=== PATIENT | female | born 1960 | race Caucasian/White ===

== ENCOUNTER 2024-04-07 17:15 | Emergency (ER) | payer OTHER, MEDICARE, SELFPAY ==
[2024-04-07 17:16] VITALS: BP 148/84; PULSE 84; RESP 14; TEMP 36.8; O2SAT 98; BMI 29.8
--- NOTE | 2024-04-07 17:28 | ED.RN ---
PT STATES THAT SHE DOES NOT KNOW ALL HER ALLERGIES, I HAVE A LOT OF THEM. PT DID NOT HAVE A COMPLETE LIST WITH HER, CANT YOU GET ON [facility] MYCHART.
--- NOTE | 2024-04-07 18:00 | US_ITS ---
We are attempting to reach an attending provider to discuss findings. An addendum with communication details will be sent when the communication is complete. INDICATION: lt leg pain/redness EXAMINATION: Ultrasound US Venous Duplex LE Unilat / Limited TECHNIQUE: Baptiste scale, pulse wave, and color flow Doppler imaging was performed of the lower extremity venous system. The LEFT greater saphenous, common femoral, femoral, and popliteal veins were interrogated. COMPARISON: No pertinent previous for comparison.. FINDINGS: There is documentation of compression flow signal within the common femoral vein and the superficial femoral vein proximal and mid segments. There is incomplete compression of the distal SFV without intraluminal Doppler signal. Popliteal vein is normal in appearance. Posterior tibial and peroneal veins are poorly visualized however appear to be noncompressible. There is significant surrounding edema. US/Venous Duplex Imag/Limited/Uni IMPRESSION: 1. Noncompressible distal SFA with diminished Doppler signal consistent with short segment of DVT extending through the level of the adductor canal. Normal appearance of the popliteal artery. 2. Peroneal and posterior tibial veins are poorly visualized, however segments appear to be noncompressible and calf DVT is a consideration. 3. Moderate edema within the calf is noted in the area of swelling. Electronically Signed: Thai Kimbrough MD at 21:40 EDT ,
--- NOTE | 2024-04-07 18:12 | EX.ED.DYSGE1 ---
HPI History of Present Illness Chief Complaint: Lower Extremity Injury Narrative Narrative: Patient is a 63-year-old female past medical history of CKD stage III, spina bifida, RA, Raynaud's syndrome, neuropathy who presents in the emergency department with chief complaint of left lower extremity swelling redness and pain. She states that she recently took a trip on vacation approximately 4 hours she states that they stop several times and she ambulated during the trip. Patient denies any history of blood clots. [facility] Medical History DVT (deep venous thrombosis) CKD (chronic kidney disease) stage 3, GFR 30-59 ml/min Spina bifida Rheumatoid arthritis Neuropathy Mcallister syndrome Home Medications ?Medication ?Instructions ?Recorded ?Last Taken ?Type ciprofloxacin HCl 500 mg tablet 500 mg PO Q12H 5 days #10 tabs 04/07/24 Unknown Rx rivaroxaban 15 mg (42)-20 mg (9) See Rx Instructions PO .COMPLEX 04/07/24 Unknown Rx tablets in a starter pack (Xarelto #51 tabs DVT-PE Treatment 30-Day Starter) Allergy/AdvReac Type Severity Reaction Status Date / Time clindamycin Allergy UNKNOWN Verified 04/07/24 17:26 doxycycline Allergy UNKNOWN Verified 04/07/24 17:26 prochlorperazine (From Allergy Anaphylaxis Verified 04/07/24 17:26 Compazine) Sulfa (Sulfonamide Allergy BLISTERS Verified 04/07/24 17:26 Antibiotics) tetracycline Allergy Anaphylaxis Verified 04/07/24 17:26 vancomycin Allergy UNKNOWN Verified 04/07/24 17:26 Social History Smoking Status: Never smoker ROS ROS ED ROS Narrative Constitutional: Denies any fevers, chills, headaches, lightheadedness, dizziness Eyes: Denies any change in vision double vision blurry vision Cardiovascular: Denies chest pain or palpitations Respiratory: Denies coughing wheezing shortness of breath Abdomen: Denies abdominal pain nausea vomiting diarrhea : Denies any urinary symptoms Neurological: Denies any new numbness, weakness, tingling Musculoskeletal: Complains of left lower extremity swelling and pain as noted above Skin: Complains of redness in the left leg as noted above EXAM Physical Exam Narrative Exam Narrative: General: Patient lying in bed resting comfortably did not appear to be any acute distress Head: Atraumatic, normocephalic Eyes: PERRL bilaterally, EOMI bilaterally, no conjunctival injection noted Neck: Soft and supple, trachea midline Cardiovascular: Regular rate and rhythm no murmurs gallops rubs noted Respiratory: Clear to auscultation bilaterally Abdomen: Soft, nondistended, no tenderness palpation Extremities: DP pulses +2/4 in the bilateral lower extremities, patient's left lower extremity does appear to be swollen more than her right, no pedal edema on exam, +5/5 strength noted in the bilateral upper and lower extremities Neurological: Patient following commands knew that she was at [facility] year is 2023 Skin: Patient does have some surrounding erythema noted to the anterior sy that is warm to the touch. No petechia no purpura no sloughing of skin noted no other rashes or lesions noted Const Vital Signs: 04/07/24 17:16 04/07/24 19:51 04/07/24 21:00 Temperature 98.3 F Temperature Source Temporal Pulse Rate 84 85 81 Respiratory Rate 14 16 16 Blood Pressure 148/84 H Blood Pressure Mean 105 Pulse Ox 98 97 98 Oxygen Delivery Method Room Air Room Air Room Air MDM MDM MDM Narrative Medical decision making narrative: Patient is a 63-year-old female who presented to the emerged part with chief complaint of left leg swelling and pain. Patient will have a workup performed here on the differential diagnose includes but not limited to DVT, cellulitis. Once workup is obtained reviewed she will be reevaluated. Patient is requesting something for pain she states that she just took Tylenol prior to arrival and notes that she cannot take NSAIDs. Patient's duplex was reviewed and she has a noncompressible distal SFA with diminished Doppler signal consistent with short segment of DVT extending through the level of the adductor canal normal appearance of the popliteal artery. Peroneal and posterior tibial veins are poorly visualized however segments appear to be noncompressible and calf DVT is a consideration. Moderate edema within the calf is noted in the area of swelling. Patient will be given her first dose of Xarelto she was given a Xarelto brochure. Pamphlet card to take to the pharmacy. She will be given a prescription for Xarelto. She was encouraged to take the Xarelto as prescribed. She will be given a prescription for cellulitis she states that she has multiple allergies and cannot take many medications. I offered to give her first dose of Keflex here and observe her, however she refused this and states that she had a reaction to Keflex several years ago. She is requesting ciprofloxacin for her cellulitis. She was encouraged to follow-up with her primary care physician outpatient setting. She was encouraged to come to the nearest emergency department if she falls and hits her head. Since she has had a few falls recently I did encourage her to use a cane or walker at home to make sure that she does not fall to provide stability for her. Patient was encouraged to return with worsening symptoms or other concerns. Patient would like to go home all question concerns answered she is discharged home in stable condition. Radiography Diagnostic Testing: Clinical Impression(s) from Imaging Studies Venous Duplex 04/07/24 18:00 IMPRESSION: 1. Noncompressible distal SFA with diminished Doppler signal consistent with short segment of DVT extending through the level of the adductor canal. Normal appearance of the popliteal artery. 2. Peroneal and posterior tibial veins are poorly visualized, however segments appear to be noncompressible and calf DVT is a consideration. 3. Moderate edema within the calf is noted in the area of swelling. Electronically Signed: Thai Kimbrough MD at 21:40 EDT , ADDENDUM: 04/07/242155 IMPRESSION: 1. Noncompressible distal SFA with diminished Doppler signal consistent with short segment of DVT extending through the level of the adductor canal. Normal appearance of the popliteal artery. 2. Peroneal and posterior tibial veins are poorly visualized, however segments appear to be noncompressible and calf DVT is a consideration. 3. Moderate edema within the calf is noted in the area of swelling. N.B. : The above Results were Read Back by Thai Kimbrough MD to [place] Pena DO, and understanding confirmed on 04/07/2024 21:49:08 (ET). Electronically Signed: Thai Kimbrough MD at 21:40 EDT , Discharge Plan Triage Chief Complaint: Lower Extremity Injury ED Provider: Berlin Pena Dx/Rx/DC Orders Clinical Impression: Acute deep vein thrombosis (DVT) of left lower extremity Instructions: DVT Complications Prescriptions: New Xarelto DVT-PE Treat 30d Start 15 mg (42)- 20 mg (9) tablets,dose pack See Rx Instructions .ROUTE .COMPLEX Qty: 51 0RF Rx Instructions: take one-15 mg tablet twice daily for 21 days, then one-20 mg tablet once daily; must take with meal/food ciprofloxacin HCl 500 mg tablet 500 mg PO Q12H 5 Days Qty: 10 0RF Primary Care Provider: JM SIMMONS Referrals: JM SIMMONS [Other] Activity Restrictions/Additional Instructions: Take Xarelto as prescribed. Take antibiotic as prescribed. If you fall and hit your head you need to go to the emergency department for evaluation being on a blood thinning medication. Return with worsening symptoms or other concerns. Print Language: Ukrainian Disposition Disposition: Home, Self Care
[2024-04-07] MEDS: Ondansetron ODT 4 MG Tablet PO (18:21)
[2024-04-07] MEDS: oxyCODONE 5 MG Tablet PO ×2 (18:21→22:42)
[2024-04-07 19:51] VITALS: PULSE 85; RESP 16; O2SAT 97
[2024-04-07 21:00] VITALS: PULSE 81; RESP 16; O2SAT 98
[2024-04-07] MEDS: Rivaroxaban 15 MG Tablet PO (22:22)
--- NOTE | 2024-04-07 22:41 | ED.RN ---
Pt refusing keflex due to previous allergy with unknown reactions. Pt states I don't feel comfortable taking the Keflex since I have had a reaction before. aware and changed the abx.
[2024-04-07] MEDS: Ciprofloxacin 500 MG Tablet PO (22:43)
[2024-04-07 23:00] VITALS: PULSE 72; RESP 16; TEMP 36.7; O2SAT 98
== END 2024-04-07 23:05 | disposition home or self-care (01) ==
PROVIDERS: Emergency Provider Emergency Medicine; Visit Provider Emergency Medicine
DX: I82.402 Acute embolism and thrombosis of unspecified deep veins of left lower extremity (principal); M06.9 Rheumatoid arthritis, unspecified; Q05.9 Spina bifida, unspecified; N18.30 Chronic kidney disease, stage 3 unspecified; M79.89 Other specified soft tissue disorders
CPT/HCPCS: 93971; 99283

== ENCOUNTER 2024-07-11 15:48 | Emergency (ER) | payer OTHER, MEDICARE, SELFPAY ==
[2024-07-11 15:48] VITALS: BP 128/72; PULSE 81; RESP 16; TEMP 36.8; O2SAT 99; BMI 28.6
--- NOTE | 2024-07-11 16:36 | EX.ED.DYSGE1 ---
HPI History of Present Illness Chief Complaint: Lower Extremity Injury [facility] Medical History DVT (deep venous thrombosis) CKD (chronic kidney disease) stage 3, GFR 30-59 ml/min Spina bifida Rheumatoid arthritis Neuropathy Mcallister syndrome Home Medications ?Medication ?Instructions ?Recorded ?Last Taken ?Type ciprofloxacin HCl 500 mg tablet 500 mg PO Q12H 5 days #10 tabs 04/07/24 Unknown Rx rivaroxaban 15 mg (42)-20 mg (9) See Rx Instructions PO .COMPLEX 04/07/24 Unknown Rx tablets in a starter pack (Xarelto #51 tabs DVT-PE Treatment 30-Day Starter) cefdinir 300 mg capsule 600 mg (2 x 300 mg) PO DAILY 10 07/11/24 Unknown Rx days #20 caps Allergy/AdvReac Type Severity Reaction Status Date / Time cephalexin (From Keflex) Allergy PT UNSURE Verified 07/11/24 15:52 OF REACTION clindamycin Allergy UNKNOWN Verified 07/11/24 15:52 doxycycline Allergy UNKNOWN Verified 07/11/24 15:52 prochlorperazine (From Allergy Anaphylaxis Verified 07/11/24 15:52 Compazine) Sulfa (Sulfonamide Allergy BLISTERS Verified 07/11/24 15:52 Antibiotics) tetracycline Allergy Anaphylaxis Verified 07/11/24 15:52 vancomycin Allergy UNKNOWN Verified 07/11/24 15:52 Social History Smoking Status: Former smoker EXAM Physical Exam Const Vital Signs: 07/11/24 15:48 07/11/24 19:00 Temperature 98.2 F Temperature Source Oral Pulse Rate 81 76 Respiratory Rate 16 18 Blood Pressure 128/72 H 129/71 H Blood Pressure Mean 90 90 Pulse Ox 99 96 Oxygen Delivery Method Room Air Room Air [facility] MDM Narrative Medical decision making narrative: HISTORY OF PRESENT ILLNESS: 64 female history of CKD, spina bifida, RA, Raynaud's syndrome, here with left calf pain, redness tingling and swelling. Pain is worse with ambulation. No known injuries. No chest pain, shortness of breath or syncope REVIEW OF SYSTEMS: Pertinent positives: Leg pain Pertinent negatives: Chest pain, shortness of breath or syncope PHYSICAL EXAM: Nursing triage notes reviewed, Vital signs reviewed Constitutional: please see mdm Extremities: Slight edema noted to left lower extremity, compartments are soft Neuro: Intact sensation L1-S1 dermatomal distributions. Intact 5/5 strength in hip flexion (T12-L3). Knee extension (L2-L4). Ankle dorsiflexion (L4-L5). Ankle plantar flexion (S1). Great toe extension (L5). 2+ patellar and Achilles DTRs. Skin: Erythema, warmth and TTP. No purulence fluctuance induration crepitus or bullae noted. MEDICAL DECISION MAKING: Chief Complaint: Leg pain External records reviewed: Medications reviewed, on Xarelto Factors affecting care: History of left lower DVT Social determinants of health: none History obtained from others: none Consults: none MDM Narrative: Patient was hemodynamically stable, afebrile and nontoxic-appearing. Exam with signs of cellulitis. I considered the following differential diagnosis: DVT, cellulitis ALL IMAGES (IF OBTAINED) HAVE BEEN PERSONALLY REVIEWED AND INTERPRETED BY MYSELF. DVT ultrasound negative for acute DVT Suspect patient symptoms secondary to cellulitis. Will give cefdinir. Will give strict return precautions and follow-up instructions. The patient and/or family, caregivers express understanding. The patient and/or family, caregivers agrees with the plan. Shared decision making: I will have a discussion with the patient and or visitors regarding risk/benefits of further testing or admission. They will be made aware of of the risk/benefits inherent in this decision they will be given the opportunity to voice understanding. Total critical care time today provided was at least 0 minutes. This excludes separately billable procedures. Critical care time (if documented) is secondary to the patient having high probability of clinically significant/life threatening deterioration in the patient's condition which required my urgent intervention. Impression: 1. Acute leg swelling 2. History of DVT 3. Cellulitis Dispo: Discharge This note was generated with [employer] dictation software. It may contain incorrect words, spelling, and punctuation that were not noted in review of the chart prior to signing. Radiography Diagnostic Testing: Clinical Impression(s) from Imaging Studies Venous Duplex 07/11/24 17:09 IMPRESSION: Normal venous Doppler ultrasound of the lower extremity. Electronically Signed: Floyd Gallego MD at 19:14 EST , Discharge Plan Triage Chief Complaint: Lower Extremity Injury ED Provider: Adarsh Godinez Dx/Rx/DC Orders Instructions: Cellulitis Dc Prescriptions: New cefdinir 300 mg capsule 600 mg PO DAILY 10 Days Qty: 20 0RF No Action Xarelto DVT-PE Treat 30d Start 15 mg (42)- 20 mg (9) tablets,dose pack See Rx Instructions .ROUTE .COMPLEX Qty: 51 0RF Rx Instructions: take one-15 mg tablet twice daily for 21 days, then one-20 mg tablet once daily; must take with meal/food ciprofloxacin HCl 500 mg tablet 500 mg PO Q12H 5 Days Qty: 10 0RF Primary Care Provider: JM SIMMONS Referrals: JM SIMMONS [Other] Activity Restrictions/Additional Instructions: Thank you for trusting us with your care today! Your ultrasound was negative for acute DVT. Likely suffering from cellulitis which is superficial skin infection. This treated antibiotics Given prescribed cefdinir which is not on your allergy list. Please take daily for the next 7 days Please take Tylenol (2 pills, 650 mg), ibuprofen (2 pills, 400 mg) every 6 hours as needed for pain and fever control. Please return to the emergency department if your symptoms change or worsen. Please follow with your primary care physician for further outpatient evaluation and management. Print Language: Kazakh Disposition Disposition: Home, Self Care
--- NOTE | 2024-07-11 17:09 | US_ITS ---
STUDY: VENOUS DOPPLER ULTRASOUND - LEFT LOWER EXTREMITY REASON FOR EXAM: Female, 64 years old. LT CALF PAIN AND REDNESS TECHNIQUE: Ultrasound evaluation of the deep vein system to include baptiste-scale imaging and compression was performed. Baptiste-scale imaging and Doppler sonographic evaluation, including duplex spectral analysis and qualitative color flow sonography, was performed. COMPARISON: None. FINDINGS: Common Femoral Vein: Normal compression, spontaneity and augmentation. Normal color Doppler. Common Femoral Vein/Greater Saphenous Junction: Normal compression, spontaneity and augmentation. Normal color Doppler. Deep Femoral Vein: Normal compression, spontaneity and augmentation. Normal color Doppler. Femoral Proximal: Normal compression, spontaneity and augmentation. Normal color Doppler. Femoral Middle: Normal compression, spontaneity and augmentation. Normal color Doppler. Femoral Distal: Normal compression, spontaneity and augmentation. Normal color Doppler. Popliteal Vein: Normal compression, spontaneity and augmentation. Normal color Doppler. Posterior Tibial Vein: Normal compression, spontaneity and augmentation. Normal color Doppler. Peroneal Vein: Normal compression, spontaneity and augmentation. Normal color Doppler. There is no demonstrated deep venous thrombosis. US/Venous Duplex Imag/Limited/Uni IMPRESSION: Normal venous Doppler ultrasound of the lower extremity. Electronically Signed: Floyd Gallego MD at 19:14 EST ,
[2024-07-11] MEDS: Ondansetron ODT 4 MG Tablet PO (17:26)
[2024-07-11] MEDS: Morphine 4 MG/ML Syringe IM (17:27)
[2024-07-11] MEDS: Ibuprofen 200 MG Tablet 400 MG PO (17:27)
[2024-07-11 19:00] VITALS: BP 129/71; PULSE 76; RESP 18; O2SAT 96
[2024-07-11] MEDS: Cefdinir 300 MG Capsule 600 MG PO (20:25)
== END 2024-07-11 21:08 | disposition home or self-care (01) ==
PROVIDERS: Emergency Provider Emergency Medicine; Visit Provider Emergency Medicine
DX: L03.116 Cellulitis of left lower limb (principal); M06.9 Rheumatoid arthritis, unspecified; Q05.9 Spina bifida, unspecified; N18.30 Chronic kidney disease, stage 3 unspecified; M79.662 Pain in left lower leg; M79.89 Other specified soft tissue disorders; Z79.01 Long term (current) use of anticoagulants; Z87.891 Personal history of nicotine dependence; Z86.718 Personal history of other venous thrombosis and embolism
CPT/HCPCS: 93971; 96372; 99282